=== PATIENT | female | born 1995 | race Hispanic/Latino ===

== ENCOUNTER 2022-11-05 10:05 | Outpatient (CLI) | payer OTHER, SELFPAY ==
--- NOTE | ~2022-11-05 | US_ITS ---
EXAMINATION: US OB BPP wo non-stress DATE: 11/05/2022 11:28 INDICATION: Biophysical profile during third trimester TECHNIQUE: Real-time pelvic ultrasound was performed. The interpreting radiologist was not present fo r the study. COMPARISON: None. FINDINGS: There is a single living fetus in vertex presentation. The placenta is posterior. heart rate is 131 beats per minute (bpm). Biophysical profile performed by the technologist: breathing (30 sec sustained breathing in 30 minutes): 2 out of 2 movement (3 gross body movements in 30 minutes): 2 out of 2 tone (one episode of splviwh-byuppzpqr-lkhedye limb movement): 2 out of 2 Amniotic fluid pocket (2 cm): 2 out of 2 Total score: 8 out of 8 IMPRESSION: 1. Single living fetus in vertex presentation. 2. Biophysical profile 8 out of 8. Reviewed, dictated and finalized at location B.
[2022-11-05 10:27] VITALS: BP 105/56; PULSE 60; RESP 18; TEMP 36.6
[2022-11-05 10:55] LABS: Alanine Aminotransferase 24 U/L (6-35); Albumin Level 3.5 g/dL (3.5-5.1); Alkaline Phosphatase 249 U/L (38-126); Anion Gap 4 mmol/L (8-16); Aspartate Amino Transferase 29 U/L (14-36); Bilirubin,Total 0.7 mg/dL (0.2-1.3); Blood Urea Nitrogen 7 mg/dL (7-17); Calcium 8.4 mg/dL (8.4-10.2); Carbon Dioxide 24 mmol/L (22-30); Chloride 104 mmol/L (98-107); Estimated Glomerular Filt Rate > 60; Glucose 80 mg/dL (65-110); Potassium 3.8 mmol/L (3.4-5.0); Sodium 132 mmol/L (137-145)
[2022-11-05 11:52] VITALS: BP 105/56; PULSE 75
--- NOTE | 2022-11-05 11:54 | PC.NURSE ---
P 03/10, reviewed labs, BPP and NST results with Wayne WILKS. KEYANNAM wants pt scheduled for repeat NST this thursday while waiting for bile acid results.
[2022-11-11 16:42] LABS: Chenodeoxycholic Acid 0.6 umol/L (< OR = 3.9); Cholic Acid 2.3 umol/L (< OR = 2.8); Deoxycholic Acid <0.5 umol/L (< OR = 2.3); Total Bile Acids 2.9 umol/L (< OR = 8.3)
== END 2022-11-05 12:00 | disposition home or self-care (01) ==
LOC: ANHOBOP 10:10 → ANHOBPP 10:10
PROVIDERS: Advanced Practice Midwife; PCP Family Medicine; Visit Provider Obstetrics & Gynecology
DX: O13.9 Gestational [pregnancy-induced] hypertension without significant proteinuria, unspecified trimester (principal)
CPT/HCPCS: 36415; 59025; 76819; 80053; 82542; 99199

== ENCOUNTER 2022-11-07 20:47 | Inpatient (IN) | payer OTHER, SELFPAY ==
[2022-11-07] VITALS (17 sets, daily range): BP systolic 106–109; BP diastolic 65–66; PULSE 68–91; RESP 15; TEMP 37; O2SAT 98–100; BMI 27.6
--- NOTE | 2022-11-07 20:47 | LDADM ---
This patient, Josefa Knott, was admitted to Labor/Delivery/Recovery 104 on 11/07/22 at 20:47. Plans for labor, pain management and were discussed with patient. Patient/family oriented to hospital policies and general routines including ID bracelet, bed and alarms, visiting hours, pain management, procedures, bathroom and other care routines, personal items, smoking policy, room service/diet and guest tray routines, security routines, and visiting hours. Patient/Family are encouraged to report perceived risks to care and to ask questions if they do not understand what they are told or what they should do. See OBIX for further documentation.
[2022-11-07 23:36] LABS: Basophils Percent Auto 0.4 % (0.2-1.2); Eosinophils Absolute Auto 0.1 K/mm3 (0-0.3); Eosinophils Percent Auto 1.2 % (0-4.4); Hematocrit 34.2 % (37.0-47.0); Hemoglobin 10.9 g/dL (12.0-15.0); Immature Granulocyte Absolute 0.04 K/mm3 (0.00-0.031); Immature Granulocyte Percent A 0.5 % (0-0.5); Lymphocytes Absolute Auto 2.63 K/mm3 (0.9-3.2); Mean Corpuscular HGB Conc 31.9 g/dl (32-36); Mean Corpuscular Hemoglobin 27.4 pg (26-34); Mean Corpuscular Volume 85.9 fl (80-100); Mean Platelet Volume 11.6 fl (7.4-10.4); Monocytes Absolute Auto 0.4 K/mm3 (0.1-0.6); Monocytes Percent Auto 5.1 % (2.6-8.5); Neutrophils Percent Auto 60.8 % (45.5-73.1); Platelet Count Result 226 k/mm3 (150-375); Red Blood Count 3.98 M/mm3 (4.2-5.4); Red Cell Distribution Width 13.7 % (11.5-14.5); White Blood Count 8.2 K/mm3 (4.5-10.0)
[2022-11-08] VITALS (103 sets, daily range): BP systolic 68–132; BP diastolic 31–92; PULSE 53–110; RESP 15–18; TEMP 36.3–37.1; O2SAT 98–100
[2022-11-08] MEDS: LACTATED RINGERS 1,000 ML 125 ML IV CONT (01:30)
--- NOTE | 2022-11-08 01:56 | WPDANESEPPF ---
Anes - Initial Pre Proc Eval Procedure: Labor epidural Date/Time: 11/08/22 01:56 Surgeon: Corby Ramos MD Pre Op Diagnosis: Labor pain Pre Op Diagnosis: Contractions Patient Data Age: 27 Gender: F Height: 1.45 m Weight: 58 kg Last Vital Signs Temp 36.8 C 11/08/22 00:30 Pulse 71 11/08/22 01:01 Resp 15 11/08/22 00:30 BP 98/56 L 11/08/22 01:01 Pulse Ox 99 11/08/22 01:51 Allergies Allergy/AdvReac Type Severity Reaction Status Date / Time No Known Allergies Allergy Verified 10/27/22 13:52 Home Medications Medication Instructions Recorded Confirmed Type One Daily 1 tablet PO DAILY 11/05/22 11/08/22 History Laboratory Tests 11/07/22 11/07/22 11/07/22 23:26 23:26 23:26 WBC 8.2 K/mm3 K/mm3 (4.5-10.0) RBC 3.98 M/mm3 L M/mm3 (4.2-5.4) Hgb 10.9 g/dL L g/dL (12.0-15.0) Hct 34.2 % L % (37.0-47.0) MCV 85.9 fl fl (80-100) MCH 27.4 pg pg (26-34) MCHC 31.9 g/dl L g/dl (32-36) RDW 13.7 % % (11.5-14.5) Plt Count 226 k/mm3 k/mm3 (150-375) MPV 11.6 fl H fl (7.4-10.4) Immature Gran % (Auto) 0.5 % % (0-0.5) Neut % (Auto) 60.8 % % (45.5-73.1) Lymph % (Auto) 32.0 % % (18.3-44.2) Bertie % (Auto) 5.1 % % (2.6-8.5) Eos % (Auto) 1.2 % % (0-4.4) Baso % (Auto) 0.4 % % (0.2-1.2) Lymph # (Auto) 2.63 K/mm3 K/mm3 (0.9-3.2) Bertie # (Auto) 0.4 K/mm3 K/mm3 (0.1-0.6) Eos # (Auto) 0.1 K/mm3 K/mm3 (0-0.3) Baso # (Auto) 0.0 K/mm3 K/mm3 (0.0-0.1) Abs Immat Gran (auto) 0.04 K/mm3 H K/mm3 (0.00-0.031) Absolute Neuts (auto) 5.0 K/mm3 K/mm3 (1.3-6.7) Absolute Nucleated RBC 0.0 K/mm3 K/mm3 (0.0-0.012) Nucleated RBC % 0.0 % % (0.0-0.2) RPR Pending Blood Type O Positive Antibody Screen Pending Patient hx anesthesia problems: none Family hx anesthesia problems: none Results Review: All pre-operative results and documents have been reviewed as part of the pre-operative evaluation. [facility] Social History Social History Smoking status: Never smoker Substance use: never Lack of Transportation: No Lack of Food: Never True Current Housing: I Have Housing Concerned About Future Housing: No Difficulty Paying Gas/Electric Bills: No Difficulty Paying for Meds: No Currently Unemployed: No Education: High School Diploma/GED Difficulty w/ Childcare or Family Care: No Spiritual care concerns: No Anes - Eval Final PreProcedure Day of Procedure 11/08/22 01:56 Patient weight: normal Heart: regular rate and rhythm ASA classification: II Emergent: no Anesthetic plan: proceed Anesthesia type and monitoring: regional spinal Results Review: All pre-operative results and documents have been reviewed as part of the pre-operative evaluation. Informed Consent: The patient's anesthetic plan and its attendant risks and benefits were discussed with the patient/family/POA. Questions were solicited and answers provided to the satisfaction of the patient/family/POA.
--- NOTE | 2022-11-08 02:26 | WPDANESEPN ---
Anes - Epidural Procedure Note Date/Time: 11/08/22 02:26 Consent: I have discussed with the patient/family/POA, the placement of an epidural catheter and the use of epidural narcotic/local anesthetic for labor analgesia and/or postoperative pain management, including associated potential risks, benefits, complications and side effects. I have discussed alternative methods of labor analgesia and/or postoperative pain management. The patient/family/POA, understand(s) and wish(es) to proceed with epidural narcotic/local anesthetic for labor analgesia and/or postoperative pain management. Time-Out: A pre-procedural Time-Out was completed immediately before starting the procedure and confirmed: Patient Identification, Site, Procedure, Patient Position and the Availability of Requisite Equipment. Clinical Indications: Labor pain Epidural Insertion Note Patient position: sitting Skin prep: chlorhexidine and sterile drape Needle: 18g Tuohy-Schliff Catheter: 20g Unstyleted Technique: Loss of resistance. Level of insertion: L4/5 Length in epidural space (cm): 4 Skin anesthesia: lidocaine 1% Test dose: 1.5% Lidocaine with 1:[id number] Epi, negative for subarachnoid Inj and negative for intravascular Inj Time of test dose: 02:11 Observations: tolerated well Complications: none
--- NOTE | 2022-11-08 02:53 | WPDOBADMIT ---
Obstetrics - Admit Note Admission Note: record reviewed. No pertinent additions to the history and/or any subsequent changes in the physical findings that are not consistent with the expected course of the were found. Pt arrived in labor, SVE /-2, AROM small amount of bloody fluid, anticipate vaginal delivery Additions to the history and/or subsequent changes in the physical findings follow. None.
[2022-11-08] MEDS: OXYTOCIN 30 UNITS/NS 500 ML 30 UNITS/500 ML BAG 999 UNITS IV CONT (04:40)
--- NOTE | 2022-11-08 04:51 | PM.OBPRVD ---
OB - Delivery Note Procedure Delivery date: 11/08/22 Procedure: Delivery augmentation: Rupture of Membranes Delivery monitor: External FHT and External Uterine Route of delivery: Episiotomy description: None Laceration Description: None Specimen: No Quantitative Blood Loss (ml): 35 Anesthesia type: Epidural Disposition: Floor [place] Baby Date of : 11/08/22 Time of : 04:40 Weeks of gestation at delivery: 37 gender: Male presentation: vertex position: Right Occiput Anterior Placenta delivery description: Spontaneous Cord Vessel Description: 3 Vessels, Clamped/Cut and Delayed Cord Clamping score one minute: 8 score five minutes: 9 Narrative: mother and baby skin to skin in stable condition
[2022-11-08] MEDS: IBUPROFEN 600 MG TABLET PO ×2 (06:49→13:44)
--- NOTE | 2022-11-08 08:05 | PC.NURSE ---
Patient transferred to post room #281 via (W/C ). Support person present. Oriented to unit, room, information board, rooming in, admission packet and security measures. Patient verbalizes understanding.
[2022-11-08] MEDS: DOCUSATE SODIUM 100 MG CAPSULE PO ×2 (09:15→16:31)
[2022-11-08] MEDS: MULTIVIT/MIN/PREN/FOL AC/IRON TABLET 1 TAB PO (09:15)
--- NOTE | 2022-11-08 09:44 | WPDANLDPN2 ---
Anes-Prog Note L&D Date/Time: 11/08/22 09:44 Comfortable throughout: labor and delivery Neuraxial method: epidural Epidural/Spinal procedure site: clean & non-tender Neuro status: Neuro function grossly intact. Cardiovascular status: normal Respiratory status: normal Airway patency: baseline Mental status: baseline Post-Op hydration status: normal Vital Signs: Last Vital Signs Temp 36.3 C L 11/08/22 04:46 Pulse 63 11/08/22 06:31 Resp 16 11/08/22 04:46 BP 95/52 L 11/08/22 06:31 Pulse Ox 99 11/08/22 06:04 Pain score (VAS): 0 I/O: Intake & Output 11/07/22 11/08/22 11/08/22 23:59 07:59 15:59 Output Total 35 Balance -35 Post-procedural complaints: none Patient feedback: Patient satisfied with anesthetic care.
[2022-11-08] MEDS: WITCH HAZEL 40 PADS 1 PAD TOPICAL (16:32)
[2022-11-08] MEDS: BENZOCAINE 20% AER SPR (*SP) 56 GM CAN 1 SPRAY TOPICAL (16:32)
[2022-11-08] MEDS: LANOLIN (LANSINOH) 7.5 GM CREAM 1 APPLIC TOPICAL (16:32)
[2022-11-08] MEDS: ACETAMINOPHEN 325 MG TABLET 650 MG PO (16:41)
[2022-11-09 04:43] VITALS: BP 100/59; PULSE 58; RESP 16; TEMP 36.6; O2SAT 98
[2022-11-09 05:39] LABS: Hematocrit 33.8 % (37.0-47.0); Hemoglobin 10.8 g/dL (12.0-15.0)
--- NOTE | 2022-11-09 08:13 | PM.OBPNVD ---
OB - PN: Subj Subjective Date/time seen: 11/09/22 08:13 s/p vaginal delivery day 1 OB - PN: Obj Data Labs 11/09/22 05:03 Labs: Laboratory Results - last 24 hr 11/09/22 05:03 Hgb 10.8 L Hct 33.8 L OB - PN A/P Plan day: 1 Plan: routine care and discharge home Time Spent With Patient Time: Total time spent is greater than 50% in coordination of care (as documented) at patient's floor/unit and/or counseling patient: Review of Systems Review of Systems: All systems reviewed & are unremarkable except as noted in HPI and below Exam Const: General: cooperative, healthy appearing and comfortable Chest: Chest palpation & inspection: normal inspection of the chest Resp: Effort & Inspection: normal respiratory effort GI: Inspection: normal to inspection
--- NOTE | 2022-11-09 08:16 | PM.OBDSVD ---
DS: Admitting Diagnosis Discharge Date 11/09/22 Admitting Diagnosis labor DS: Discharge Diagnosis Discharge Diagnosis (1) Vaginal delivery: Code(s): O80 - Encounter for full-term uncomplicated delivery Status: Acute OB - DS: Summary OB Procedures : None OB Procedures Intrapartum: Spontaneous Vag Delivery OB Procedures: : None Time Spent with Patient Time attestation: Total time spent providing and/or coordinating discharge services: DS: Data Data Completed and Pending Labs on day of discharge: Labs from last 24 hours 11/09/22 05:03 Hgb 10.8 L Hct 33.8 L Discharge Plan Discharge Attending physician on discharge: Corby Ramos Discharging Clinician: Marcia Gordon Patient Disposition: Home, Self-Care Activity: pelvic rest Diet: regular Patient Instructions: Antibiotic Form Stand Alone Forms: General Discharge Information Follow-up/Referrals: Marcia Gordon CNM [Certified Nurse Sand Mixer] - 4 Weeks Discharge Medications: Continued One Daily 1 tablet PO DAILY Date of admission: 11/07/22 20:47 Primary Care Provider: Sean,[facility] Admitting Provider: Corby Ramos Attending physician on admission: Corby Ramos Condition: Stable
[2022-11-09] MEDS: DOCUSATE SODIUM 100 MG CAPSULE PO (09:11)
[2022-11-09] MEDS: MULTIVIT/MIN/PREN/FOL AC/IRON TABLET 1 TAB PO (09:11)
[2022-11-09] MEDS: IBUPROFEN 600 MG TABLET PO (09:12)
[2022-11-09 09:15] VITALS: BP 114/65; PULSE 62; RESP 16; TEMP 36.7; O2SAT 100
--- NOTE | 2022-11-09 10:00 | PC.NURSE ---
Patient viewed the discharge video Mother & Baby Care, The First Two Weeks . Patient was given the opportunity and encouraged to ask questions. Patient verbalized understanding of information shared and has been given the mother/baby guide for home reference.
[2022-11-09] MEDS: TETANUS,DIPHTHERIA,AC PERTUSSIS ADULT (0.5 ML) BOOSTRIX IM (11:08)
[2022-11-10 08:18] LABS: Rapid Plasma Reagin Non-Reactive (NonReactive)
[2022-11-11 10:24] VITALS: BP 110/61; PULSE 82; RESP 16; TEMP 36.6; O2SAT 100
== END 2022-11-09 13:20 | disposition home or self-care (01) | DRG 560 ==
LOC: ANHLDR 22:52 → ANHOB2 11-08 08:11
PROVIDERS: Admitting Provider Advanced Practice Midwife; PCP Family Medicine; Referring Provider Advanced Practice Midwife; Visit Provider Obstetrics & Gynecology
DX: O80 Encounter for full-term uncomplicated delivery (principal); Z37.0 Single live birth; Z3A.37 37 weeks gestation of pregnancy
CPT/HCPCS: 36415; 59025; 76819; 80053; 82542; 85014; 85018; 85025; 86592; 86850; 86900; 86901; 90715; 99199; A9270; J2590; J2795; J7120